=== PATIENT | female | born 1975 | race Caucasian/White ===

== ENCOUNTER 2017-04-08 23:03 | Emergency (ER) | payer OTHER ==
[~2017-04-08 23:03] MED LIST: IBUP400T20 PO; LEVO.125 PO; LISI-586 PO
[2017-04-08 23:06] VITALS: BP 149/69; PULSE 98; RESP 16; TEMP 97.9; O2SAT 99
--- NOTE | 2017-04-09 00:55 | PD ---
HPI Chief Complaint: Musculoskeletal Complaint Time Seen by Provider: 00:42 Travel History International Travel<30 days: No Contact w/Intl Traveler<30days: No Traveled to known affect area: No History of Present Illness HPI 41-year-old white female presents emergency department complaints of right calf pain after walking up the driveway this evening. She states that she felt a pop in her right calf. She had sudden severe pain and had difficulty in relating. She denies any numbness or tingling. No recent use of quinolones. Pain is worse with ambulation. Some relief with elevation. PFSH Past Medical History Narrative Medical Hypertension, GERD, hypothyroidism, arthritis, second and third-degree medina to the arms Asthma: Yes GERD: Yes Hypertension: Yes Thyroid Disease: Yes (HYPO) Tetanus Vaccination: < 5 Years ?: Not Past Surgical History Surgical History: No Previous Surgery Social History Alcohol Use: No Tobacco Use: No Substance Use: No Allergies-Medications (Allergen,Severity, Reaction): Coded Allergies: ciprofloxacin (Unverified Allergy, Severe, Hives, 12/22/16) Reported Meds & Prescriptions Reported Meds & Active Scripts Active Reported Motrin (Ibuprofen) 400 Mg Tab 400 Mg PO ONCE Zestoretic 20/12.5 (HCTZ/Lisinopril) 20 Mg/12.5 Mg Tab 1 Tab PO DAILY Synthroid (Levothyroxine Sodium) 125 Mcg Tab 125 Mcg PO DAILY Review of Systems General / Constitutional: No: Fever Eyes: No: Visual changes HENT: No: Headaches Cardiovascular: No: Chest Pain or Discomfort Respiratory: No: Shortness of Breath Gastrointestinal: No: Abdominal Pain Genitourinary: No: Dysuria Musculoskeletal: Positive: Myalgias, Arthralgias, Limited ROM, Edema, Pain Skin: No Rash Neurologic: No: Weakness Psychiatric: No: Depression Endocrine: No: Polydipsia Hematologic/Lymphatic: No: Easy Bruising Physical Exam Narrative GENERAL: This is a well-nourished, well-developed patient, in no apparent distress. SKIN: No rashes, ecchymoses or lesions. Warm and dry. HEAD: Atraumatic. Normocephalic. EYES: PERRL, EOMI, no discharge or injection. No scleral icterus. EARS: Clear NOSE: Nasal turbinates appear normal. THROAT: Mucosa pink and moist. Airway patent. NECK: Trachea midline. supple, moves head freely. LUNGS: Clear to auscultation. CV: Regular in rhythm. ABDOMEN: Soft nontender. EXT: No clubbing cyanosis or edema in the left leg. Examination the right lower leg reveals mild tenderness and swelling to the medial head of the gastroc. Positive Curtis test bilaterally. No tenderness along the Achilles area and no pain in the knee, ankle, foot. She has intact gross sensation. Data Data Last Documented VS Vital Signs Date Time Temp Pulse Resp B/P (MAP) Pulse Ox O2 Delivery O2 Flow Rate FiO2 04/08/17 23:06 97.9 98 16 149/69 (95) 99 Room Air Orders Orders Ice/Cold Pack (04/09/17 00:49) Splint Or Brace Apply/Monitor (04/09/17 00:49) Crutches (04/09/17 00:49) Acetamin-Hydrocod 325-5 Mg (Hinckley 5-325 (04/09/17 01:00) Ed Discharge Order (04/09/17 00:49) MDM Medical Decision Making Medical Screen Exam Complete: Yes Emergency Medical Condition: Yes Medical Record Reviewed: Yes Differential Diagnosis MDM: High Differential diagnoses: Fracture, sprain, strain, dislocation, contusion, neurovascular injury Narrative Course Acute right calf strain Patient given Travis wrap, crutches, ice, Lortab 5 a grams by mouth. Diagnosis Primary Impression: Strain of right gastrocnemius muscle Qualified Codes: S86.111A - Strain of other muscle(s) and tendon(s) of posterior muscle group at lower leg level, right leg, initial encounter Patient Instructions: Narcotic given in the ED, General Instructions Additional Instructions: Rest. Elevation. Ice packs for the next 3 days. Travis wrap and crutches. No weight-bearing and then progress to weight-bearing as tolerated. Continue home medications. Follow-up with an orthopedist or your doctor in one week. Return to the ER if any problems Disposition: 01 DISCHARGE HOME Condition: Stable Raz Villasenor Apr 09, 2017 00:55
[2017-04-09] MEDS ORDERED: ACETAMINOPHEN/HYDROcodone 325 MG/5 MG TAB PO ONE (01:00)
== END 2017-04-09 01:23 | disposition home or self-care (01) ==
LOC: NEPD 23:03
DX: S86.111A Strain of other muscle(s) and tendon(s) of posterior muscle group at lower leg level, right leg, initial encounter (principal); X58.XXXA Exposure to other specified factors, initial encounter; Y93.01 Activity, walking, marching and hiking; Y92.89 Other specified places as the place of occurrence of the external cause
CPT/HCPCS: 99283; E0113